=== PATIENT | male | born 1975 | race Caucasian/White ===

== ENCOUNTER 2018-03-11 08:20 | Emergency (ER) | payer OTHER ==
[~2018-03-11] VITALS: Ht 188 cm; Wt 129.5 kg
[2018-03-11] MEDS ORDERED: BACTRIM DS TAB1 EACH PO (10:22)
[2018-03-11 10:25] VITALS: BP 149/96
== END 2018-03-11 10:30 | disposition home or self-care (01) ==
LOC: ED 08:20
DX: S61.215A Laceration without foreign body of left ring finger without damage to nail, initial encounter (principal); W23.0XXA Caught, crushed, jammed, or pinched between moving objects, initial encounter; Y92.69 Other specified industrial and construction area as the place of occurrence of the external cause